=== PATIENT | male | born 1965 | race American Indian/Alaskan Native ===

== ENCOUNTER 2018-05-03 10:12 | Emergency (ER) | payer MEDICARE, OTHER ==
[2018-05-03 10:21] VITALS: BP 131/80
[2018-05-03] MEDS ORDERED: PHENERGAN PO ONE (11:43)
[2018-05-03] MEDS ORDERED: DILAUDID IM ONE (11:43)
--- NOTE | 2018-05-03 11:48 | Emergency Department Report ---
ED Back Pain/Injury HPI - General Chief Complaint: Back Pain/Injury Stated Complaint: BACK PAIN Time Seen by Provider: 05/03/18 11:15 Source: patient Limitations: No Limitations - History of Present Illness Initial Comments: 52-year-old male with past medical history chronic back pain presents to the hospital complaining of acute exacerbation of chronic back pain. Patient has a history of herniated disc surgery and arthritis. Currently in pain management and [place]. He is visiting family in [facility] and states that he left his medication at home because he thought he was not needed. Since yesterday he has 10/10 mid lower back pain similar to previous episodes that is worse with palpation and movement. Patient has chronic left leg numbness that is unchanged and denies any weakness or urinary/fecal incontinence. He also denies fevers. He is requested IM shot without prescriptions and plans to return to [place] tomorrow. He typically takes Endocet 10/325 mg. [place] prescription monitoring site reviewed and patient was provided 120 tablets on apr 08. - Related Data Allergies Allergy/AdvReac Type Severity Reaction Status Date / Time amitriptyline Allergy Hives Verified 05/03/18 10:15 ketorolac [From Toradol] Allergy Hives Verified 05/03/18 10:15 milk Allergy Hives Verified 05/03/18 10:15 morphine Allergy Hives Verified 05/03/18 10:15 shrimp Allergy Hives Verified 05/03/18 10:15 sumatriptan [From Imitrex] Allergy Hives Verified 05/03/18 10:15 tomato Allergy Hives Verified 05/03/18 10:15 ED Review of Systems ROS: Stated complaint: BACK PAIN Other details as noted in HPI Comment: All other systems reviewed and negative ED Past Medical Hx - Past Medical History Previous Medical History?: Yes Additional medical history: Chronic back pain - Surgical History Past Surgical History?: Yes Additional Surgical History: Hernia repair with mesh - Social History Smoking Status: Never Smoker Substance Use Type: None ED Physical Exam - General Limitations: No Limitations - Other Other exam information: General: No limitations, patient is alert in no acute distress Head exam: Atraumatic, normocephalic Eyes exam: Normal appearance ENT: Moist mucous membrane, Neck exam: Normal inspection, Respiratory exam: Clear to auscultation bilateral, no wheezes, rales, crackles Cardiovascular: Normal rate and rhythm Abdomen: Soft, nondistended, and nontender, with normal bowel sounds, no rebound, or guarding Extremity: Full range of motion normal inspection no deformity Back: Mid lower back tenderness Neurologic: Alert, oriented x3, cranial nerves intact, no motor deficit Psychiatric: normal affect, normal mood Skin: Warm, dry, intact ED Course Vital Signs 05/03/18 10:18 Temperature 97.4 F L Pulse Rate 85 Respiratory 18 Rate Blood Pressure 131/80 O2 Sat by Pulse 98 Oximetry ED Medical Decision Making - Medical Decision Making Patient provided IM Dilaudid and Phenergan for acute exacerbation of chronic pain. Will be discharged without prescription - Differential Diagnosis chronic pain, muscle strain, drug-seeking Critical Care Time: No Critical care attestation.: If time is entered above; I have spent that time in minutes in the direct care of this critically ill patient, excluding procedure time. ED Disposition Clinical Impression: Acute exacerbation of chronic low back pain Disposition: - TO HOME OR SELFCARE Is pt being admited?: No Does the pt Need Aspirin: No Condition: Stable Instructions: Chronic Back Pain (ED) Additional Instructions: Follow up with your doctor. Return if symptoms worsen as indicated by your discharge instructions Referrals: your, pain management doctor [Other] - 3-5 Days Time of Disposition: 11:48
== END 2018-05-03 12:09 | disposition home or self-care (01) ==
LOC: ED 10:12
DX: M54.5 Low back pain (principal); G89.29 Other chronic pain; Z91.011 Allergy to milk products; Z91.018 Allergy to other foods; Z88.6 Allergy status to analgesic agent; Z91.013 Allergy to seafood
CPT/HCPCS: 96372; 99282; J1170; Q0169